=== PATIENT | female | born 1950 | race Caucasian/White ===

== ENCOUNTER 2017-06-13 10:00 | Day surgery (SDC) | payer MEDICARE, OTHER, MEDICAID ==
[~2017-06-13 10:00] MED LIST: PROPOFOL INJ 200 MG/20 ML VIAL IV ONE
[2017-06-13 11:58] VITALS: BP 129/68
--- NOTE | 2017-06-13 13:20 | Operative Report ---
Operative Report DATE OF SURGERY: 06/13/17 Operative Report: The risks, benefits and alternatives of the procedure including risks of bleeding, perforation requiring surgery are explained to the patient in detail and informed consent was obtained. Patient is taken back to the endoscopy suite and placed in a left, lateral decubital position. Timeout was called. Propofol medications administered. A rectal examination is done which did not reveal any masses, tears or fissures. An Olympus videoscope was inserted into the patient's rectum. The scope was then carefully advanced all the way to the cecum. The cecum was identified by the usual anatomical landmarks including the ileocecal valve as well as the appendiceal office. Photodocumentation is obtained. Prep is good. The scope was then sequentially pulled back via the various segments of the colon including the ascending colon, hepatic flexure, transverse colon, splenic flexure, descending colon and finally into the rectosigmoid portions of the colon. Retroflexion maneuvers performed. PREOPERATIVE DIAGNOSIS: Colorectal cancer screening POSTOPERATIVE DIAGNOSIS: Descending colon polyp status post biopsy to remove. Internal hemorrhoids OPERATION: Colonoscopy with biopsy SURGEON: ABRAM VO ANESTHESIA: LMAC TISSUE REMOVED OR ALTERED: As noted above. COMPLICATIONS: None. ESTIMATED BLOOD LOSS: None. INTRAOPERATIVE FINDINGS: As noted above. PROCEDURE: Patient tolerated the procedure well. No immediate postprocedure complications are noted. Patient discharged in good condition. Discharge date 06/13/2017. Discharge diet: Regular. Discharge activity: Regular. 2-3 week follow-up to discuss findings. Patient is instructed to call the office or proceed to the emergency room should there be any further problems or questions. Surveillance colonoscopy in 5 years.
== END 2017-06-13 11:35 | disposition home or self-care (01) ==
LOC: END 10:00
PROVIDERS: ATTEND Internal Medicine Gastroenterology
DX: Z12.11 Encounter for screening for malignant neoplasm of colon (principal); K64.8 Other hemorrhoids; D12.4 Benign neoplasm of descending colon; E11.9 Type 2 diabetes mellitus without complications; I10 Essential (primary) hypertension; Z79.4 Long term (current) use of insulin; Z79.899 Other long term (current) drug therapy; Z79.84 Long term (current) use of oral hypoglycemic drugs; Z79.82 Long term (current) use of aspirin
CPT/HCPCS: 45380; 82962; 88305 ×2; J2704; 812

== ENCOUNTER 2018-04-02 16:30 | Emergency (ER) | payer MEDICARE, OTHER, MEDICAID ==
[2018-04-02] MEDS ORDERED: ASPIRIN 81 MG TABLET, CHEWABLE PO ONE (17:59)
--- NOTE | 2018-04-02 18:16 | EKG REPORT ---
SEVERITY:- ABNORMAL ECG - SINUS TACHYCARDIA PROBABLE LVH WITH SECONDARY REPOL ABNRM : Confirmed by: Sue Parrish MD 02-Apr-2018 18:15:09
[2018-04-02 18:25] LABS: ABSOLUTE EOSINOPHILS # (AUTO) 0.1 10^3/uL (0.0-0.6); ABSOLUTE LYMPHOCYTES (AUTO) 2.4 10^3/uL (0.5-4.7); ABSOLUTE MONOCYTES (AUTO) 0.6 10^3/uL (0.1-1.4); ABSOLUTE NEUT (AUTO) 4.8 10^3/uL (1.7-8.2); BASOPHILS % (AUTO) 0.6 % (0-2); EOSINOPHILS % (AUTO) 0.6 % (0-6); HEMATOCRIT 36.9 % (36.0-47.0); HEMOGLOBIN 12.9 g/dL (12.0-15.5); LYMPHOCYTES % (AUTO) 30.8 % (13-45); MEAN CORPUSCULAR HEMOGLOBIN 29.5 pg (27.0-33.4); MEAN CORPUSCULAR HGB CONC 34.9 g/dL (32.0-36.0); MEAN CORPUSCULAR VOLUME 85 fl (80-97); PLATELET COUNT 312 10^3/uL (150-450); RED BLOOD COUNT 4.36 10^6/uL (3.72-5.28); RED CELL DISTRIBUTION WIDTH 15.7 % (11.5-14.0); TOTAL CELLS COUNTED % (AUTO) 100 %; WHITE BLOOD COUNT 7.9 10^3/uL (4.0-10.5)
[2018-04-02 18:49] LABS: ALANINE AMINOTRANSFERASE 92 U/L (9-52); ALBUMIN 4.6 g/dL (3.5-5.0); ALKALINE PHOSPHATASE 54 U/L (38-126); ANION GAP 11 (5-19); ASPARTATE AMINO TRANSFERASE 79 U/L (14-36); BILIRUBIN,DIRECT 0.2 mg/dL (0.0-0.4); BILIRUBIN,TOTAL 1.6 mg/dL (0.2-1.3); BLOOD UREA NITROGEN 6 mg/dL (7-20); CALCIUM 8.7 mg/dL (8.4-10.2); CARBON DIOXIDE 29 mmol/L (22-30); CHLORIDE 101 mmol/L (98-107); CREATINE KINASE 108 U/L (30-135); GLUCOSE 200 mg/dL (75-110); POTASSIUM 3.1 mmol/L (3.6-5.0); SODIUM 141.3 mmol/L (137-145); TOTAL PROTEIN 7.6 g/dL (6.3-8.2)
--- NOTE | 2018-04-02 18:50 | RADIOLOGY REPORT (SQ) ---
EXAM DESCRIPTION: CHEST SINGLE VIEW COMPLETED DATE/TIME: 04/02/2018 6:31 pm REASON FOR STUDY: cp COMPARISON: 04/12/2007 TECHNIQUE: Single frontal radiographic view of the chest acquired. NUMBER OF VIEWS: One view. LIMITATIONS: None. FINDINGS: LUNGS AND PLEURA: No pneumothorax. No consolidation or pleural effusion. MEDIASTINUM AND HILAR STRUCTURES: Stable. HEART AND VASCULAR STRUCTURES: Stable. BONES: No acute findings. HARDWARE: None in the chest. OTHER: No other significant finding. IMPRESSION: NO ACUTE FINDINGS. TECHNICAL DOCUMENTATION: JOB ID: [id number] [employer]- All Rights Reserved Reading location - IP/workstation name: [email or web address]
[2018-04-02 19:00] LABS: CREATINE KINASE MB 0.98 ng/mL (<4.55); TROPONIN I 0.025 ng/mL
--- NOTE | 2018-04-02 19:52 | ER Document Report ---
ED General - General Chief Complaint: Palpitations Stated Complaint: RAPID HEART RATE Time Seen by Provider: 04/02/18 18:30 Primary Care Provider: ELIER MILLS MD [Primary Care Provider] - Follow up as needed Notes: Patient is a 68-year-old female with a past medical history of proximal atrial fibrillation, hypertension, diabetes, presents with an episode of palpitations earlier today that has since resolved. The patient denies any associated chest pain or shortness of breath at that time or currently. Nothing seemed to improve or worsen her symptoms when present which have spontaneously resolved. Patient attributes some of her symptoms to anxiety, states that her primary care doctor often tells her that she needs to calm down and try to not overthink her medical conditions. The patient states that her palpitations lasted for several hours prior to coming to the hospital. She did not contact her primary care doctor regarding today's concerns. TRAVEL OUTSIDE OF THE [place] IN LAST 30 DAYS: No - HPI Onset: This afternoon Onset/Duration: Sudden Quality of pain: No pain Severity: Mild Pain Level: Denies Associated symptoms: None Exacerbated by: Denies Relieved by: Denies Similar symptoms previously: Yes Recently seen / treated by doctor: No - Related Data Allergies/Adverse Reactions: amoxicillin [Amoxicillin] Allergy (Verified 06/13/17 10:05) Anaphylaxis PPD Allergy (Unknown, Uncoded 06/13/17 10:05) arm swells Past Medical History - General Information source: Patient - Social History Smoking Status: Never Smoker Chew tobacco use (# tins/day): No Frequency of alcohol use: None Drug Abuse: None Lives with: Spouse/Significant other Family History: Reviewed & Not Pertinent Patient has suicidal ideation: No Patient has homicidal ideation: No - Past Medical History Cardiac Medical History: Reports: Hx Atrial Fibrillation, Hx Hypercho lesterolemia, Hx Hypertension - ON MEDS Denies: Hx Coronary Artery Disease, Hx Heart Attack Pulmonary Medical History: Reports: Hx Asthma - ENVIRONMENTAL- NO MEDS, Hx Pneumonia - YRS AGO Denies: Hx Bronchitis, Hx COPD Neurological Medical History: Denies: Hx Cerebrovascular Accident, Hx Seizures Endocrine Medical History: Reports: Hx Diabetes Mellitus Type 2 Renal/ Medical History: Denies: Hx Peritoneal Dialysis GI Medical History: Reports: Hx Gastroesophageal Reflux Disease, Hx Hiatal Hernia. 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 Denies: Hx Mastectomy, Hx Open Heart S urgery, Hx Pacemaker - Immunizations Hx Diphtheria, Pertussis, Tetanus Vaccination: Yes Hx Pneumococcal Vaccination: 06/03/17 Review of Systems - Review of Systems Notes: Constitutional: Negative for fever. HENT: Negative for sore throat. Eyes: Negative for visual changes. Cardiovascular: Negative for chest pain. Positive palpitations Respiratory: Negative for shortness of breath. Gastrointestinal: Negative for abdominal pain, vomiting or diarrhea. Genitourinary: Negative for dysuria. Musculoskeletal: Negative for back pain. Skin: Negative for rash. Neurological: Negative for headaches, weakness or numbness. 10 point ROS negative except as marked above and in HPI. Physical Exam - Vital signs Vitals: Temp Pulse Resp BP Pulse Ox 98.9 F 107 H 17 173/74 H 99 04/02/18 16:41 04/02/18 16:41 04/02/18 16:41 04/02/18 16:41 04/02/18 16:41 Interpretation: Hypertensive, Tachycardic - Resolved at the time of my assessment Notes: PHYSICAL EXAMINATION: GENERAL: Well-appearing, well-nourished and in no acute distress. HEAD: Atraumatic, normocephalic. EYES: Pupils equal round and reactive to light, extraocular movements intact, sclera anicteric, conjunctiva are normal. ENT: nares patent, oropharynx clear without exudates. Moist mucous membranes. NECK: Normal range of motion, supple without lymphadenopathy LUNGS: Breath sounds clear to auscultation bilaterally and equal. No wheezes rales or rhonchi. HEART: Regular rate and rhythm, faint systolic ejection murmur ABDOMEN: Soft, nontender, normoactive bowel sounds. No guarding, no rebound. No masses appreciated. EXTREMITIES: Normal range of motion, no pitting or edema. No cyanosis. NEUROLOGICAL: No focal neurological deficits. Moves all extremities s pontaneously and on command. PSYCH: Normal mood, normal affect. SKIN: Warm, Dry, normal turgor, no rashes or lesions noted. Course - Re-evaluation Re-evalutation: 04/02/18 19:51 Patient presents with palpitations but is in no acute distress. Vitals within normal limits at time of assessment. Initial mild tachycardia resolved. EKG unremarkable with a normal sinus rhythm. Patient does have a history of atrial fibrillation. Laboratories are unremarkable. Patient denies any chest pain, shortness of breath, or vomiting. She states that at no point did she have any of these symptoms. At this time based on exam and history do not suspect a new onset arrhythmia, ACS, acute pulmonary embolus, aortic dissection. Patient e ncouraged to follow-up with their primary care physician as well as cardiology. She has a known history of atrial fibrillation I suspect that she may have had an episode of paroxysmal atrial fibrillation that has now resolved. At this time will discharge with return precautions and follow-up recommendations. Verbal discharge instructions given a the bedside and opportunity for questions given. Medication warnings reviewed. Patient is in agreement with this plan and has verbalized understanding of return precautions and the need for primary care follow-up in the next 24-72 hours. - Vital Signs Vital signs: Temp Pulse Resp BP Pulse Ox 98.6 F 107 H 18 169/87 H 100 04/02/18 20:01 04/02/18 16:41 04/02/18 20:01 04/02/18 20:01 04/02/18 20:01 - Laboratory Result Diagrams: 04/02/18 18:00 04/02/18 18:00 Laboratory results interpreted by me: 04/02/18 04/02/18 18:00 18:00 RDW 15.7 H Potassium 3.1 L BUN 6 L Glucose 200 H Total Bilirubin 1.6 H AST 79 H ALT 92 H - Diagnostic Test Radiology reviewed: Image reviewed, Reports reviewed Radiology results interpreted by me: 04/02/18 19:51 Chest x-ray: No acute infiltrate or pneumothorax - EKG Interpretation by Me Additional EKG results interpreted by me: 04/02/18 19:51 Sinus tachycardia, rate 112. No ST elevations or depressions. QTC is 448. Discharge - Discharge Clinical Impression: Palpitations, Essential hypertension Condition: Good Disposition: HOME, SELF-CARE Additional Instructions: Please follow-up with your primary care doctor or a leather tacker regarding your palpitations. It is possible that you had a brief episode of atrial fibrillation that has now resolved. Your labs, EKG, chest x-ray are all reas suring today. Return if you develop chest pain, shortness of breath, pass out, or have any other symptoms that are worrisome to you. Referrals: ELIER MILLS MD [Primary Care Provider] - Follow up as needed
[2018-04-02 20:03] VITALS: BP 169/87
== END 2018-04-02 20:02 | disposition home or self-care (01) ==
LOC: ER 16:30
DX: R00.2 Palpitations (principal); I10 Essential (primary) hypertension; E11.9 Type 2 diabetes mellitus without complications; Z79.899 Other long term (current) drug therapy; J45.909 Unspecified asthma, uncomplicated
CPT/HCPCS: 93005; 99285; 36415; 82553; 82550; 85025; 80053; 84484; 71045; 93010; A9270

== ENCOUNTER → 2018-12-04 | Outpatient (CLI) | payer MEDICARE, MEDICAID ==
--- NOTE | 2018-12-04 13:03 | RADIOLOGY REPORT (SQ) ---
EXAM DESCRIPTION: CAROTID DOPPLER COMPLETED DATE/TIME: 12/04/2018 12:09 pm REASON FOR STUDY: PVD Z13.6 ENCOUNTER FOR SCREENING FOR CARDIOVASCULAR DISORDERS COMPARISON: None. TECHNIQUE: Grayscale ultrasound, Doppler velocity and spectra, and color Doppler images acquired of the extra-cranial carotid and vertebral arteries. Images stored on PACS. LIMITATIONS: None. FINDINGS: RIGHT CAROTID CCA Velocities: Within normal limits. ICA Velocities Peak systolic 102 cm/s. End diastolic 34 cm/s. Proximal ICA/CCA peak systolic ratio 1.7 to. Spectra normal. No significant plaque. LEFT CAROTID CCA Velocities: Within normal limits. ICA Velocities Peak systolic 88 cm/s. End diastolic 29 cm/s. Proximal ICA/CCA peak systolic ratio 1.36. There are some small plaques in the carotid bulb. VERTEBRAL ARTERIES: Antegrade flow. Normal waveforms. SUBCLAVIAN ARTERIES: No finding. OTHER: No other significant finding. IMPRESSION: NO HEMODYNAMICALLY SIGNIFICANT STENOSIS. COMMENT: Quality ID #[id number]: Velocity criteria are extrapolated from the diameter data as defined by t he Society of Radiologists in Ultrasound Consensus Conference. Radiology 2003: 229; 340-346. TECHNICAL DOCUMENTATION: JOB ID: [id number]- All Rights Reserved Reading location - IP/workstation name: [email or web address]
--- NOTE | 2018-12-04 14:04 | XCELERA REPORT ---
[address] [address] Lower Extremity Arterial Evaluation Name: RADHA MARIE Age: 68 yrs Gender: Female : 1950 Patient Status: Outpatient Patient Location: RAD Study Date: 12/04/2018 11:08 AM Procedure: A color flow and duplex scan of the lower extremity arteries was performed bilaterally with velocity and waveform anaylsis. Reason For Study: PVD Ordering Physician: ELIER MILLS Performed By: Agustín Dobbs Measurements and Calculations Right Left PEDIATRIC ONCOLOGY NURSE PSV 138.8 120.1 cm/sec Prox PFA PSV -120.7 -104.8cm/sec Prox SFA PSV 105.6 120.8 cm/sec Mid SFA PSV -127.3 -123.6cm/sec Dist SFA PSV -59.7 -63.7 cm/sec Prox Pop A PSV 65.6 77.7 cm/sec Dist PIA PSV 125.7 150.1 cm/sec Dist MANAGER FOOD SAFETY PSV 105.6 -92.3 cm/sec Farrukh Pedis PSV 95.4 139.9 cm/sec Right Side Arterial Evaluation Normal velocity and triphasic waveforms noted from the Common Femoral artery to the infrageniculate vessels . Ankle Brachial index not ordered.. Left Side Arterial Evaluation Normal velocity and triphasic waveforms noted from the Common Femoral artery to the infrageniculate vessels . Ankle Brachial index not ordered.. Interpretation Summary No hemodynamically significant lesions in the bilateral lower extremities, on duplex imaging, at rest. : ELIER MILLS > Sukhi Clark
--- NOTE | 2018-12-04 16:53 | RADIOLOGY REPORT (SQ) ---
EXAM DESCRIPTION: U/S ABD AORTIC SCREENING COMPLETED DATE/TIME: 12/04/2018 10:46 am REASON FOR STUDY: Z13.6 ENCOUNTER FOR SCREENING FOR CARDIOVASCULAR DISORDERS Z13.6 ENCOUNTER FOR SC REENING FOR CARDIOVASCULAR DISORDERS COMPARISON: None. TECHNIQUE: Static and dynamic grayscale images acquired of the aorta and stored on PACs. Selected co rhea Doppler and spectral images recorded. LIMITATIONS: None. FINDINGS: AORTIC CALIBER MAXIMAL PROXIMAL: 2.3 cm. MID: 2.1 cm. DISTAL: 1.8 cm. ILIAC DIAMETER RIGHT: 1.4 cm. LEFT: 1.1 cm. OTHER: No other significant finding. IMPRESSION: NO ABDOMINAL AORTIC ANEURYSM. COMMENT: Aortic aneurysm imaging followup: Negative, no followup necessary. *Based upon the Society for Vascular Surgery Guidelines: J Vasc Surg. 2009 Oct;50(4 Suppl):S2-49 *For aortas of maximum diameter of 2.6-2.9 cm meeting the criteria for AAA (?1.5 x proximal normal se gment) TECHNICAL DOCUMENTATION: JOB ID: [id number] [employer]- All Rights Reserved Reading location - IP/workstation name: [email or web address]
== END ==
LOC: RAD 10:11
PROVIDERS: ATTEND Internal Medicine Geriatric Medicine
DX: Z13.6 Encounter for screening for cardiovascular disorders (principal); E11.43 Type 2 diabetes mellitus with diabetic autonomic (poly)neuropathy
CPT/HCPCS: 76706; 93880; 93925